=== PATIENT | female | born 2000 | race Two or more races ===

== ENCOUNTER 2022-02-02 17:19 | Inpatient (IN) | payer OTHER ==
[~2022-02-02] VITALS: Ht 170.2 cm; Wt 99.0 kg
[2022-02-02] VITALS (25 sets, daily range): BP systolic 104–136; BP diastolic 54–103
[2022-02-02] MEDS ORDERED: PENICILLIN G POTASSIUM IV 5 MU in D5W MINI-BAG PLUS 100 ML IV STA (17:29)
[2022-02-02] MEDS ORDERED: OXYTOCIN INJ 10 UNITS/ML VIAL (J2590) IV PRN (17:30)
[2022-02-02] MEDS ORDERED: OXYTOCIN DRIP 30 UNITS in IV 1 EA IV PRN ×4 (17:30)
[2022-02-02] MEDS ORDERED: LACTATED RINGER'S 1000 ML IV ONE (17:30)
[2022-02-02] MEDS ORDERED: TRANEXAMIC ACID INJection 1,000 MG in NS 100 ML IV PRN (17:30)
[2022-02-02] MEDS ORDERED: LR 1,000 ML IV SCH ×2 (17:30→19:50)
[2022-02-02] MEDS ORDERED: HOME MED LIST COMPLETE! XX SCH (18:00)
[2022-02-02] MEDS ORDERED: PRENTAB9 PO (18:00)
[2022-02-02 18:03] LABS: HEMATOCRIT 34.4 % (36.0-47.0); HEMOGLOBIN 11.3 g/dl (12.0-15.5); MEAN CORPUSCULAR HEMOGLOBIN 28.4 pg (27.0-33.0); MEAN CORPUSCULAR HGB CONC 32.8 g/dl (32.0-36.5); MEAN CORPUSCULAR VOLUME 86.4 fl (80.0-96.0); PLATELET COUNT, AUTOMATED 215 10^3/uL (150-450); RED BLOOD COUNT 3.98 10^6/uL (4.00-5.40); WHITE BLOOD COUNT 14.8 10^3/uL (4.0-10.0)
[2022-02-02] MEDS ORDERED: FENTANYL 2MCG/ML ROPIVACAINE 0.2% IN 0.9% NACL 100ML IVBAG As Ordered ONE (18:29)
[2022-02-02] MEDS ORDERED: OXYTOCIN 30 UNITS IN 0.9% NaCl 500ML IV BAG (J2590) As Ordered ONE (18:53)
[2022-02-02 19:36] LABS: CORD GAS ABE A -5.8; CORD GAS HCO3 A 20.6 MEQ/L; CORD GAS HCO3 V 22.4 MEQ/L; CORD GAS O2 SAT A 75.5 %; CORD GAS O2 SAT V 76.3 %; CORD GAS PCO2 A 43.5 mmHg; CORD GAS PCO2 V 45.7 mmHg; CORD GAS PH A 7.293 UNITS; CORD GAS PH V 7.309 UNITS; CORD GAS PO2 A 31.7 mmHg; CORD GAS PO2 V 32.1 mmHg; CORD GAS SBC A 19.2 MEQ/L; CORD GAS SBC V 20.6 MEQ/L; CORD GAS TCO2 A 21.9 MEQ/L; CORD GAS TCO2 V 23.8 MEQ/L
[2022-02-02] MEDS ORDERED: ONDANSETRON 4MG 2ML VIAL IV PRN (19:40)
[2022-02-02] MEDS ORDERED: NALOXONE INJ 0.4MG/1ML VIAL (J2310 PER 1MG) IV PRN (19:40)
[2022-02-02] MEDS ORDERED: FENTANYL/ROPIVACAINE/NACL BAG 100 ML EPIDURAL SCH (19:40)
[2022-02-02] MEDS ORDERED: EPIDURAL/PCA KEYS XX PRN (19:40)
[2022-02-02] MEDS ORDERED: ePHEDrine SULFATE 25 MG/5 ML(5MG/ML) SYRINGE IVP PRN (19:40)
[2022-02-02] MEDS ORDERED: diphenhydrAMINE 50MG/ML VIAL (J1200) IV PRN (19:40)
[2022-02-02] MEDS ORDERED: LR 500 ML IV PRN (19:40)
[2022-02-02] MEDS ORDERED: RHOGAM 300 MCG (1500 IU) INJ (J2790) IM SCH (19:50)
[2022-02-02] MEDS ORDERED: ACETAMINOPHEN TAB 650MG DOSE (2X325MG) PO PRN (19:50)
[2022-02-02] MEDS ORDERED: OXYTOCIN DRIP 30 UNITS in IV 1 EA IV SCH (19:50)
[2022-02-02] MEDS ORDERED: OXYTOCIN DRIP 30 UNITS in IV 1 EA IV ONE (19:50)
[2022-02-02] MEDS ORDERED: ACETAMINOPHEN 500 MG TAB PO PRN (19:50)
[2022-02-02] MEDS ORDERED: OXYTOCIN INJ 10 UNITS/ML VIAL (J2590) IV ONE (19:50)
[2022-02-02] MEDS ORDERED: DOCUSATE SODIUM 100MG CAPSULE PO PRN (19:50)
[2022-02-02] MEDS ORDERED: METHYLERGONOVINE MALEATE 0.2 MG TAB PO PRN (19:50)
[2022-02-02] MEDS ORDERED: ANUSOL HC CREAM 30GM TOP PRN (19:50)
[2022-02-02] MEDS ORDERED: IBUPROFEN 600MG TAB PO PRN (19:50)
[2022-02-02] MEDS ORDERED: MOM 30ML SUSPENSION UDC PO PRN (19:50)
[2022-02-02] MEDS ORDERED: DIBUCAINE 1% OINTMENT 30GM TOP PRN (19:50)
[2022-02-02] MEDS ORDERED: PENICILLIN G POTASSIUM IV 2.5 MU in IV 1 EA IV SCH (22:00)
[2022-02-03 05:47] VITALS: BP 114/76
[2022-02-03 07:18] LABS: HEMATOCRIT 30.9 % (36.0-47.0); HEMOGLOBIN 9.9 g/dl (12.0-15.5); MEAN CORPUSCULAR VOLUME 87.3 fl (80.0-96.0); PLATELET COUNT, AUTOMATED 185 10^3/uL (150-450); RED BLOOD COUNT 3.54 10^6/uL (4.00-5.40); WHITE BLOOD COUNT 13.3 10^3/uL (4.0-10.0)
[2022-02-03] MEDS: PRENATAL VITAMINS CHEWABLE TABLET PO SCH (08:31)
[2022-02-03 18:00] VITALS: BP 117/72
[2022-02-04] MEDS ORDERED: ACET1TAB55 PO (05:51)
[2022-02-04] MEDS ORDERED: COLA100C5 PO (05:51)
[2022-02-04] MEDS ORDERED: IBUP-1022 PO (05:51)
[2022-02-04 06:01] VITALS: BP 122/68
[2022-02-04] MEDS ORDERED: MEASLES,MUMPS,RUBELLA VACCINE INJ (MMR-II) (90707) SC.IMMUN ONE (09:00)
[2022-02-04] MEDS: PRENATAL VITAMINS CHEWABLE TABLET PO SCH (09:41)
== END 2022-02-04 18:20 | disposition home or self-care (01) | DRG 807 ==
LOC: M LDO 17:19 → M LDI 17:27 → M OBS 22:01
PROVIDERS: ADMIT Obstetrics & Gynecology; ATTEND Obstetrics & Gynecology
PROC: 10E0XZZ Delivery of Products of Conception, External Approach (ICD-10-PCS; principal; 2022-02-02)
PROC: F13Z0ZZ Hearing Screening Assessment (ICD-10-PCS; 2022-02-02)
DX: O62.3 Precipitate labor (principal); Z37.0 Single live birth; Z3A.39 39 weeks gestation of pregnancy; O99.824 Streptococcus B carrier state complicating childbirth; O77.0 Labor and delivery complicated by meconium in amniotic fluid; O70.0 First degree perineal laceration during delivery; O69.82X0 Labor and delivery complicated by other cord entanglement, without compression, not applicable or unspecified

== ENCOUNTER 2023-08-17 20:53 | Emergency (ER) | payer OTHER ==
[~2023-08-17] VITALS: Ht 170.2 cm; Wt 103.2 kg
[~2023-08-17 20:53] MED LIST: ACET1TAB55 PO; COLA100C5 PO; IBUP-1022 PO; PRENTAB9 PO
[2023-08-17 20:54] VITALS: BP 122/77; TEMP 97.8; O2SAT 99
[2023-08-17] MEDS ORDERED: OXYMETAZOLINE 0.05% NASAL SPRAY (AFRIN) ONE (21:40)
[2023-08-17] MEDS ORDERED: FLON1SPR NARES (21:45)
== END 2023-08-17 22:00 | disposition home or self-care (01) ==
LOC: M ED 20:53
DX: H65.03 Acute serous otitis media, bilateral (principal); H92.02 Otalgia, left ear; Z79.810 Long term (current) use of selective estrogen receptor modulators (SERMs); Z79.1 Long term (current) use of non-steroidal anti-inflammatories (NSAID); Z79.899 Other long term (current) drug therapy

== ENCOUNTER 2023-10-17 19:32 | Emergency (ER) | payer OTHER ==
[~2023-10-17] VITALS: Ht 170.2 cm; Wt 110.8 kg
[~2023-10-17 19:32] MED LIST changes: +FLON1SPR NARES
[2023-10-17 20:42] LABS: BASO # 0.1 10^3/uL (0.0-0.2); EOS # 0.2 10^3/uL (0.0-0.5); EOS % 1.9 % (0.0-3.0); HEMATOCRIT 40.6 % (36.0-47.0); HEMOGLOBIN 13.8 g/dl (12.0-15.5); LYMPH # 2.5 10^3/uL (1.5-5.0); LYMPH % 26.8 % (24.0-44.0); MEAN CORPUSCULAR HEMOGLOBIN 30.8 pg (27.0-33.0); MEAN CORPUSCULAR VOLUME 90.6 fl (80.0-96.0); MONO # 0.8 10^3/uL (0.0-0.8); NEUTROPHILS # 5.8 10^3/uL (1.5-8.5); NEUTROPHILS % 61.7 % (36.0-66.0); PLATELET COUNT, AUTOMATED 196 10^3/uL (150-450); RED BLOOD COUNT 4.48 10^6/uL (4.00-5.40); WHITE BLOOD COUNT 9.4 10^3/uL (4.0-10.0)
[2023-10-17 21:12] LABS: BLOOD UREA NITROGEN 10 MG/DL (9-23); CALCIUM LEVEL 9.2 MG/DL (8.5-10.1); CARBON DIOXIDE LEVEL 21 MMOL/L (20-31); CHLORIDE LEVEL 107 MMOL/L (98-107); CREATININE FOR GFR 0.42 MG/DL (0.55-1.30); GLOMERULAR FILTRATION RATE > 60.0 (>60); GLUCOSE, FASTING 110 MG/DL (60-100); MAGNESIUM LEVEL 1.7 MG/DL (1.8-2.4); POTASSIUM SERUM 4.1 MMOL/L (3.5-5.1); SODIUM LEVEL 138 MMOL/L (136-145)
[2023-10-17] MEDS: MAG SULF 1GM/100ML (MAG RUN) 1 GM in IV 1 EA IV ONE (22:01)
[2023-10-17] MEDS ORDERED: PRED20TA PO (22:07)
[2023-10-17] MEDS: predniSONE 20 MG TAB PO ONE (22:37)
[2023-10-17 23:00] VITALS: BP 122/76; TEMP 97.5; O2SAT 100
[2023-10-18] MEDS ORDERED: TUMS750C5 PO (12:26)
== END 2023-10-17 23:14 | disposition home or self-care (01) ==
LOC: M ED 19:32
DX: O99.353 Diseases of the nervous system complicating pregnancy, third trimester (principal); G51.0 Bell's palsy; Z3A.40 40 weeks gestation of pregnancy; Z79.52 Long term (current) use of systemic steroids; Z79.810 Long term (current) use of selective estrogen receptor modulators (SERMs)
CPT/HCPCS: 70544; 70551; 80048; 81001; 83735; 85025; 87088; 87186; 87486; 87581; 87633; 87798; 96365; 99284; J3475; J7512

== ENCOUNTER 2023-10-18 11:59 | Inpatient (IN) | payer OTHER ==
[~2023-10-18] VITALS: Ht 170.2 cm; Wt 109.6 kg
[~2023-10-18 11:59] MED LIST changes: +PRED20TA PO
[2023-10-18] MEDS ORDERED: TUMS750C5 PO (12:26)
[2023-10-18 12:28] VITALS: BP 129/77
[2023-10-18] MEDS ORDERED: OXYTOCIN DRIP 30 UNITS in IV 1 EA IV PRN (12:50)
[2023-10-18] MEDS ORDERED: TRANEXAMIC ACID INJection 1,000 MG in NS 100 ML IV PRN (12:50)
[2023-10-18] MEDS ORDERED: OXYTOCIN INJ 10UNITS/ML 1ML VIAL IM PRN (12:50)
[2023-10-18] MEDS ORDERED: ARTIFICIAL TEARS DROPS 15ML BTL (VISINE DRY RELIEF) OS SA PRN (12:50)
[2023-10-18] MEDS ORDERED: METHYLERGONOVINE MALEATE 0.2MG/ML 1ML VIAL IM PRN (12:50)
[2023-10-18] MEDS ORDERED: LIDOCAINE 1% MDV 20ML VIAL INFIL PRN (12:50)
[2023-10-18] MEDS ORDERED: CARBOPROST TROMETHAMINE 250 MCG/ML AMP IM PRN (12:50)
[2023-10-18] MEDS: LACTATED RINGER'S 1000 ML IV STA (13:11)
[2023-10-18] MEDS: PENICILLIN G POTASSIUM 5 MU IV 5 MU in D5W MINI-BAG PLUS 100 ML IV STA (13:11)
[2023-10-18 13:24] VITALS: BP 133/76
[2023-10-18 13:27] LABS: HEMATOCRIT 39.9 % (36.0-47.0); HEMOGLOBIN 13.6 g/dl (12.0-15.5); MEAN CORPUSCULAR HEMOGLOBIN 30.8 pg (27.0-33.0); MEAN CORPUSCULAR HGB CONC 34.1 g/dl (32.0-36.5); MEAN CORPUSCULAR VOLUME 90.5 fl (80.0-96.0); PLATELET COUNT, AUTOMATED 188 10^3/uL (150-450); RED BLOOD COUNT 4.41 10^6/uL (4.00-5.40); WHITE BLOOD COUNT 10.6 10^3/uL (4.0-10.0)
[2023-10-18] MEDS ORDERED: HOME MED LIST COMPLETE! XX SCH (13:30)
[2023-10-18] MEDS ORDERED: ONDANSETRON 4MG 2ML VIAL IV PRN (13:35)
[2023-10-18] MEDS ORDERED: NALOXONE INJ 0.4MG/1ML VIAL IV PRN (13:35)
[2023-10-18] MEDS ORDERED: LR 500 ML IV PRN (13:35)
[2023-10-18] MEDS ORDERED: ePHEDrine SULFATE 25 MG/5 ML(5MG/ML) SYRINGE IVP PRN (13:35)
[2023-10-18] MEDS ORDERED: EPIDURAL/PCA KEYS XX PRN (13:35)
[2023-10-18] MEDS ORDERED: diphenhydrAMINE 50MG/ML VIAL IV PRN (13:35)
[2023-10-18] MEDS: predniSONE 20 MG TAB PO SCH (13:43)
[2023-10-18] MEDS ORDERED: FENTANYL 2MCG/ML ROPIVACAINE 0.2% IN 0.9% NACL 100ML IVBAG As Ordered ONE (13:46)
[2023-10-18] MEDS: LR 1,000 ML IV SCH ×2 (14:14→16:30)
[2023-10-18] MEDS: FENTANYL/ROPIVACAINE/NACL BAG 100 ML EPIDURAL SCH (14:14)
[2023-10-18] MEDS: OXYTOCIN DRIP 30 UNITS in IV 1 EA IV PRN (16:08)
[2023-10-18] MEDS ORDERED: IBUPROFEN 800 MG TAB PO PRN (16:20)
[2023-10-18] MEDS ORDERED: RHOGAM 300MCG (1500IU) INJ IM SCH (16:20)
[2023-10-18] MEDS ORDERED: IBUPROFEN 600MG TAB PO PRN (16:20)
[2023-10-18] MEDS ORDERED: ACETAMINOPHEN 500 MG TAB PO PRN (16:20)
[2023-10-18] MEDS ORDERED: DOCUSATE SODIUM 100MG CAPSULE PO PRN (16:20)
[2023-10-18] MEDS ORDERED: DIBUCAINE 1% OINTMENT 30GM TOP PRN (16:20)
[2023-10-18] MEDS ORDERED: METHYLERGONOVINE MALEATE 0.2 MG TAB PO PRN (16:20)
[2023-10-18] MEDS ORDERED: MOM 30ML SUSPENSION UDC PO PRN (16:20)
[2023-10-18] MEDS ORDERED: ACETAMINOPHEN TAB 650MG DOSE (2X325MG) PO PRN (16:20)
[2023-10-18] MEDS ORDERED: CALCIUM CARBONATE 500 MG CHEW U/D PO PRN (16:20)
[2023-10-18] MEDS ORDERED: METOCLOPRAMIDE INJ 10MG/2ML VIAL IV PRN (16:20)
[2023-10-18] MEDS: OXYTOCIN DRIP 30 UNITS in IV 1 EA IV SCH ×2 (16:30→17:08)
[2023-10-18] MEDS ORDERED: PEN G POT 3,000,000 UNIT/50 ML 3,000,000 UNIT in IV 1 EA IV SCH (17:15)
[2023-10-18 18:00] VITALS: BP 118/73; O2SAT 97
[2023-10-19 06:00] VITALS: BP 123/82; O2SAT 98
[2023-10-19] MEDS ORDERED: PRENATAL VITAMINS CHEWABLE TABLET PO SCH (09:00)
[2023-10-19] MEDS ORDERED: predniSONE 20 MG TAB PO SCH (09:00)
[2023-10-19] MEDS: PRENATAL VITAMINS CHEWABLE TABLET PO SCH (09:16)
[2023-10-19 18:00] VITALS: BP 114/84; O2SAT 98
[2023-10-20 05:56] VITALS: BP 129/71; O2SAT 100
[2023-10-20 08:31] VITALS: BP 129/71; TEMP 97.7; O2SAT 100
[2023-10-20] MEDS: MEASLES,MUMPS,RUBELLA VACCINE INJ (MMR-II) SC.IMMUN ONE (11:37)
== END 2023-10-20 11:45 | disposition home or self-care (01) | DRG 806 ==
LOC: M LDO 11:59 → M LDI 12:42 → M OBS 18:00
PROVIDERS: ADMIT Obstetrics & Gynecology; ATTEND Obstetrics & Gynecology
PROC: 10E0XZZ Delivery of Products of Conception, External Approach (ICD-10-PCS; principal; 2023-10-18)
PROC: 0HQ9XZZ Repair Perineum Skin, External Approach (ICD-10-PCS; 2023-10-18)
DX: O77.0 Labor and delivery complicated by meconium in amniotic fluid (principal); Z37.0 Single live birth; O99.354 Diseases of the nervous system complicating childbirth; Z3A.40 40 weeks gestation of pregnancy; O48.0 Post-term pregnancy; G51.0 Bell's palsy; E66.9 Obesity, unspecified; O99.214 Obesity complicating childbirth; O99.824 Streptococcus B carrier state complicating childbirth; O70.0 First degree perineal laceration during delivery